=== PATIENT | male | born 1960 | race Caucasian/White ===

== ENCOUNTER 2017-09-13 12:50 | Inpatient (IN) | payer OTHER ==
[~2017-09-13 12:50] MED LIST: LIDOCAINE 2% (SDV) 5 ML INJ
[2017-09-13] MEDS ORDERED: morphine 4 MG/ML VIAL IV (13:02)
[2017-09-13] MEDS: HYDROmorphONE 0.5 MG/0.5 ML SYG IV ×4 (13:25→18:54)
[2017-09-13] MEDS: ONDANSETRON 4 MG INJ IV ×4 (13:25→18:54)
[2017-09-13] MEDS: SOD CHLORIDE 0.9% 1,000 ML IV ×4 (13:26→23:42)
[2017-09-13 13:36] LABS: ADD MAN DIFF? NO
[2017-09-13 13:40] LABS: BASOPHIL # 0.1 10^3/ul (0.0-0.1); BASOPHILS % 0.6 % (0.0-2.0); EOSINOPHILS # 0.2 10^3/ul (0.0-0.5); EOSINOPHILS % 1.5 % (0.0-7.0); HEMATOCRIT 53.8 % (42.0-52.0); HEMOGLOBIN 16.4 g/dl (14.0-18.0); LYMPHOCYTES # 2.2 10^3/ul (0.8-2.9); LYMPHOCYTES % 15.2 % (15.0-51.0); MEAN CORPUSCULAR HEMOGLOBIN 19.6 pg (29.0-33.0); MEAN CORPUSCULAR HGB CONC 30.5 g/dl (32.0-37.0); MEAN CORPUSCULAR VOLUME 64.4 fl (82.0-101.0); MEAN PLATELET VOLUME 8.5 fl (7.4-10.4); MONOCYTE # 0.9 10^3/ul (0.3-0.9); PLATELET COUNT 287 10^3/UL (140-415); RED CELL DISTRIBUTION WIDTH 18.2 % (11.5-14.5)
[2017-09-13 13:40] LABS: WHITE BLOOD COUNT 14.4 10^3/ul (4.8-10.8)
[2017-09-13 13:43] LABS: RED BLOOD COUNT 8.35 10^6/ul (4.70-6.10)
[2017-09-13 14:05] LABS: ALANINE AMINOTRANSFERASE 57 IU/L (13-69); ALBUMIN 4.4 g/dl (3.3-4.9); ALBUMIN/GLOBULIN RATIO 1.29; ALKALINE PHOSPHATASE 62 IU/L (42-121); ANION GAP 17 (8-16); ASPARTATE AMINO TRANSFERASE 48 IU/L (15-46); BILIRUBIN,INDIRECT 0.8 mg/dl (0-1.1); BILIRUBIN,TOTAL 0.8 mg/dl (0.2-1.3); BLOOD UREA NITROGEN 28 mg/dl (7-20); CALCIUM 9.4 mg/dl (8.4-10.2); CARBON DIOXIDE 28 mmol/L (21-31); CHLORIDE 105 mmol/L (97-110); GLUCOSE 92 mg/dl (70-220); SODIUM 146 mmol/L (135-144); TOTAL PROTEIN 7.8 g/dl (6.1-8.1)
[2017-09-13 14:10] LABS: INR 0.93; PARTIAL THROMBOPLASTIN TIME 36.5 Sec (25.0-35.0); PROTIME 12.6 Sec (11.9-14.9)
[2017-09-13] MEDS: IOHEXOL 300MG/ML 150 ML BTL (14:59)
[2017-09-13] MEDS: SOD CHLORIDE 0.9% 100 ML (14:59)
[2017-09-13] MEDS: HYDROmorphONE 2 MG/ML SYG IV ×2 (17:28→23:46)
[2017-09-13] MEDS ORDERED: DOCUSATE SODIUM 100 MG CAP PO (17:30)
[2017-09-13] MEDS ORDERED: NACL 0.9% 3 ML SYG IV (17:30)
[2017-09-13] MEDS ORDERED: ONDANSETRON 4 MG INJ IV ×3 (17:30→22:00)
[2017-09-13 18:09] LABS: ADD UMIC NO; UR ASCORBIC ACID NEGATIVE (NEGATIVE); UR BILIRUBIN (Dip) NEGATIVE (NEGATIVE); UR BLOOD (Dip) NEGATIVE (NEGATIVE); UR CLARITY CLEAR (CLEAR); UR COLOR YELLOW (YELLOW); UR GLUCOSE (Dip) NEGATIVE (NEGATIVE); UR KETONES (Dip) 1+ mg/dL (NEGATIVE); UR LEUKOCYTE ESTERASE (Dip) NEGATIVE Leu/ul (NEGATIVE); UR NITRITE (Dip) NEGATIVE (NEGATIVE); UR SPECIFIC GRAVITY (Dip) 1.039 (1.003-1.030); UR TOTAL PROTEIN (Dip) NEGATIVE (NEGATIVE); UR UROBILINOGEN (Dip) 1+ mg/dL (NEGATIVE)
[2017-09-13] MEDS: PIPER-TAZO 3.375 GM IV (PMX) 100 ML IVPB (19:00)
[2017-09-13] MEDS ORDERED: BUPIVACAINE 0.25% (MPF) 30 ML INJ (19:18)
[2017-09-13] MEDS ORDERED: GLYCOPYRROLATE 0.4 MG INJ ×2 (20:13→20:35)
[2017-09-13] MEDS ORDERED: PROPOFOL 20 ML (20:13)
[2017-09-13] MEDS ORDERED: NEOSTIGMINE 3 MG/3 ML SYRINGE ×2 (20:13→20:35)
[2017-09-13] MEDS ORDERED: ROCURONIUM 50 MG INJ (20:13)
[2017-09-13] MEDS ORDERED: SUCCINYLCHOLINE CHLORIDE 100 MG/5 ML SYG IV (20:13)
[2017-09-13] MEDS ORDERED: MEPERIDINE 100 MG INJ (20:13)
[2017-09-13] MEDS ORDERED: OXYCODONE/ACETAMINOPHEN (5/325) TAB PO ×3 (20:30→22:00)
[2017-09-13] MEDS ORDERED: FENTAnyl 50 MCG/ML VIAL IV ×3 (20:30)
[2017-09-13] MEDS ORDERED: DIPHENHYDRAMINE 50 MG INJ IV (20:30)
[2017-09-13] MEDS ORDERED: EPHEDrine SULFATE 50 MG/5 ML SYG IV (20:30)
[2017-09-13] MEDS ORDERED: MEPERIDINE 25 MG INJ IV (20:30)
[2017-09-13] MEDS ORDERED: hydrALAzine 20 MG INJ IV (20:30)
[2017-09-13] MEDS ORDERED: HYDROmorphONE (0.2 MG/ML) 10ML SYG IV ×3 (20:30)
[2017-09-13] MEDS ORDERED: MIDAZOLAM 1 MG/ML 2 ML INJ IV (20:30)
[2017-09-13] MEDS ORDERED: LABETALOL HCL 20MG INJ IV (20:30)
[2017-09-13] MEDS ORDERED: METOCLOPRAMIDE 10 MG INJ IV (20:30)
[2017-09-13] MEDS ORDERED: ONDANSETRON 4 MG INJ (20:35)
[2017-09-13] MEDS: BUPIVACAINE 0.25% (MPF) 30 ML INJ INJ (20:44)
[2017-09-13] MEDS ORDERED: NALOXONE (0.4 MG/ML) INJ (21:34)
[2017-09-13] MEDS ORDERED: morphine 2 MG INJ IV (22:00)
[2017-09-14] MEDS: SOD CHLORIDE 0.9% 1,000 ML IV (03:03)
[2017-09-14 05:16] LABS: ADD MAN DIFF? NO
[2017-09-14 05:23] LABS: WHITE BLOOD COUNT 13.6 10^3/ul (4.8-10.8)
[2017-09-14 05:23] LABS: BASOPHIL # 0.1 10^3/ul (0.0-0.1); BASOPHILS % 0.4 % (0.0-2.0); EOSINOPHILS # 0.2 10^3/ul (0.0-0.5); EOSINOPHILS % 1.5 % (0.0-7.0); HEMATOCRIT 45.1 % (42.0-52.0); HEMOGLOBIN 14.3 g/dl (14.0-18.0); LYMPHOCYTES % 14.7 % (15.0-51.0); MEAN CORPUSCULAR HEMOGLOBIN 20.5 pg (29.0-33.0); MEAN CORPUSCULAR HGB CONC 31.7 g/dl (32.0-37.0); MEAN CORPUSCULAR VOLUME 64.7 fl (82.0-101.0); MEAN PLATELET VOLUME 8.8 fl (7.4-10.4); MONOCYTE # 1.3 10^3/ul (0.3-0.9); MONOCYTES % 9.4 % (0.0-11.0); NEUTROPHILS % 73.6 % (39.0-77.0); PLATELET COUNT 224 10^3/UL (140-415); RED BLOOD COUNT 6.97 10^6/ul (4.70-6.10); RED CELL DISTRIBUTION WIDTH 18.3 % (11.5-14.5)
[2017-09-14 05:58] LABS: ANION GAP 15 (8-16); BLOOD UREA NITROGEN 21 mg/dl (7-20); CALCIUM 8.6 mg/dl (8.4-10.2); CARBON DIOXIDE 26 mmol/L (21-31); CHLORIDE 106 mmol/L (97-110); CREATININE 0.94 mg/dl (0.61-1.24); GLUCOSE 96 mg/dl (70-220); POTASSIUM 4.2 mmol/L (3.5-5.1); SODIUM 143 mmol/L (135-144)
[2017-09-14] MEDS: OXYCODONE/ACETAMINOPHEN (5/325) TAB PO (09:47)
[2017-09-14] MEDS: CEPHALEXIN 500 MG CAP PO (13:12)
== END 2017-09-14 17:30 | disposition home or self-care (01) | DRG 352 ==
LOC: E/R 12:50 → MS1 19:25
PROC: 0YU50JZ Supplement Right Inguinal Region with Synthetic Substitute, Open Approach (ICD-10-PCS; principal; 2017-09-13 18:00)
DX: K40.30 Unilateral inguinal hernia, with obstruction, without gangrene, not specified as recurrent (principal); K76.0 Fatty (change of) liver, not elsewhere classified; F17.210 Nicotine dependence, cigarettes, uncomplicated; R91.8 Other nonspecific abnormal finding of lung field; N20.0 Calculus of kidney; M43.8X6 Other specified deforming dorsopathies, lumbar region
CPT/HCPCS: 74177; 80048; 80053; 81003; 85025; 85610; 85730; 87086; 93005; 96374; 96375; 96376; 99291-25